=== PATIENT | male | born 1960 | race Caucasian/White ===

== ENCOUNTER 2017-06-12 16:14 | Inpatient (IN) | payer OTHER ==
[~2017-06-12] VITALS: Ht 190.5 cm; Wt 142.4 kg
[~2017-06-12 16:14] MED LIST: AMLODIPINE BESY10 M1 PO; CLINDAMYCIN HC300 MG PO; CLONIDINE HCL0.1 MG PO; COLACE100 MG PO; ECO81 PO; GLU5 PO; HIBICLENS118 ML TOP; HYDROCHLOROTHIA25 MG PO; HYDROCODONE BIT1 T26 PO; IND50 PO; LAC PO; LISINOPRIL40 MG PO; METFORMIN HCL500 MG PO; METFORMIN HYD1000 M1 PO; METFORMIN1000 M1 PO; METOPROLOL SUC100 M1 PO; NOR10T PO; ZOC10 PO
[2017-06-12] MEDS ORDERED: GLUCOTROL10 MG PO (17:27)
[2017-06-12] MEDS ORDERED: HYDROCHLOROTHIA25 MG PO (17:28)
[2017-06-12] MEDS ORDERED: METOCLOPRAMIDE H5 M1 PO (17:28)
[2017-06-12] MEDS ORDERED: ALLOPURINOL100 MG PO (17:29)
[2017-06-12 17:30] LABS: BASOPHIL % 0.8 % (0-2); PLATELET COUNT 366 x10^3mcL (130-400); RED CELL DISTRIBUTION WIDTH 12.8 % (11.5-14.5)
[2017-06-12] MEDS ORDERED: METOPROLOL TAR100 MG PO (17:30)
[2017-06-12] MEDS ORDERED: METFORMIN HCL850 MG PO ×3 (17:30→20:42)
[2017-06-12] MEDS ORDERED: HYDRALAZINE HCL25 MG PO ×2 (17:30→17:31)
[2017-06-12] MEDS ORDERED: CLONIDINE HCL0.2 MG PO (17:31)
[2017-06-12 17:43] LABS: CALCIUM 9.6 mg/dL (8.5-10.1); CARBON DIOXIDE 30.5 mmol/L (21-32); CHLORIDE SERUM 100 mmol/L (98-107); CREATININE SERUM 1.3 mg/dL (0.7-1.3); GFR1 > 60 mL/min; GLUCOSE SERUM 215 mg/dL (74-106); POTASSIUM SERUM 4.1 mmol/L (3.5-5.1); SODIUM SERUM 142 mmol/L (136-145)
[2017-06-12 17:56] LABS: ALKALINE PHOSPHATASE 45 U/L (46-116); ALT/SGPT 46 U/L (16-63); AST/SGOT 23 U/L (15-37); BILIRUBIN TOTAL 0.35 mg/dL (0.20-1.00); FREE T4 1.08 ng/dL (0.76-1.46); LIPASE 82 IU/L (73-393); TOTAL PROTEIN, SERUM 7.5 g/dL (6.4-8.2)
[2017-06-12 18:17] LABS: AMPHETAMINE QUAL UR NONE DETECTED (NEG <=1000)
[2017-06-12 18:38] LABS: microscopic required? NO
[2017-06-12 18:49] LABS: UA SPECIFIC GRAVITY <=1.005 (1.005-1.035); urine erythrocyte NEGATIVE (NEGATIVE)
[2017-06-12 18:55] LABS: MAGNESIUM 1.3 mg/dL (1.8-2.4); PHOSPHOROUS 2.2 mg/dL (2.5-4.9)
[2017-06-12] MEDS ORDERED: METOPROLOL SUC100 M2 PO (20:13)
[2017-06-12 20:16] VITALS: BP 116/65
[2017-06-12 21:07] VITALS: BP 133/81
[2017-06-12 21:22] VITALS: BP 133/81
[2017-06-13 05:40] VITALS: BP 127/67
[2017-06-13 06:28] LABS: BASOPHIL % 0.8 % (0-2); PLATELET COUNT 319 x10^3mcL (130-400); RED CELL DISTRIBUTION WIDTH 13.3 % (11.5-14.5)
[2017-06-13 06:47] LABS: CALCIUM 8.8 mg/dL (8.5-10.1); CARBON DIOXIDE 28.4 mmol/L (21-32); CHLORIDE SERUM 100 mmol/L (98-107); CREATININE SERUM 1.3 mg/dL (0.7-1.3); GFR1 > 60 mL/min; GLUCOSE SERUM 199 mg/dL (74-106); PHOSPHOROUS 3.2 mg/dL (2.5-4.9); POTASSIUM SERUM 3.6 mmol/L (3.5-5.1); SODIUM SERUM 138 mmol/L (136-145)
[2017-06-13 07:42] VITALS: Ht 190.5 cm; Wt 142.4 kg
[2017-06-13 08:10] VITALS: BP 126/84
[2017-06-13 12:53] VITALS: BP 132/69
[2017-06-13] MEDS ORDERED: TAM75 PO (13:25)
[2017-06-13] MEDS ORDERED: CYCLOBENZAPRINE5 MG PO (13:26)
[2017-06-13 14:43] VITALS: BP 132/69
== END 2017-06-13 16:10 | disposition home or self-care (01) | DRG 243 ==
LOC: ED 16:14 → DU 18:12
PROVIDERS: Emergency Medicine; Family Medicine Sports Medicine
DX: K21.9 Gastro-esophageal reflux disease without esophagitis (principal); E11.65 Type 2 diabetes mellitus with hyperglycemia; I10 Essential (primary) hypertension; M10.9 Gout, unspecified; J10.1 Influenza due to other identified influenza virus with other respiratory manifestations; E78.5 Hyperlipidemia, unspecified; E83.42 Hypomagnesemia; E83.39 Other disorders of phosphorus metabolism; M75.101 Unspecified rotator cuff tear or rupture of right shoulder, not specified as traumatic; Z81.1 Family history of alcohol abuse and dependence; Z80.9 Family history of malignant neoplasm, unspecified; Z82.49 Family history of ischemic heart disease and other diseases of the circulatory system; Z80.8 Family history of malignant neoplasm of other organs or systems; Z81.8 Family history of other mental and behavioral disorders
CPT/HCPCS: 36600; 72072; 82962; 83880; 84439; 87804; 94150; G0480; J2270; J3475; J7030; J8597; Q0092